=== PATIENT | male | born 1985 | race Caucasian/White ===

== ENCOUNTER 2018-01-19 18:13 | Emergency (ER) | END 2018-01-19 18:51 | disposition home or self-care (01) ==

== ENCOUNTER 2018-07-29 17:58 | Emergency (ER) | END 2018-07-29 19:48 | disposition home or self-care (01) ==

== ENCOUNTER 2018-09-07 00:35 | Emergency (ER) | payer SELFPAY ==
[~2018-09-07] VITALS: Ht 172.7 cm; Wt 62.8 kg
[~2018-09-07 00:35] MED LIST: ACET500C5 PO; AZIT250T PO; CETI10CA PO; CLIN300C10 PO; DOXY100T20 PO; IBUP-1542 PO
[2018-09-07 00:38] VITALS: BP 125/70; PULSE 88; RESP 19; Ht 172.7 cm; Wt 62.8 kg
--- NOTE | 2018-09-07 01:45 | ERD ---
ER Documentation Chief Complaint Chief Complaint SOB [id number] HPI This is a 33-year-old male who presents to emergency department with complaints of shortness of breath for about 30 minutes. Stated this happened about 2 hours prior to arrival here in emergency department. Stated he was here last July for the same symptoms and was told that it was normal. She also stated that they did chest x-ray and EKG and was normal. Denies headache, head injury, loss of consciousness, dizziness, neck pain, neck stiffness, throat pain, difficulty swallowing, difficulty breathing lying flat, shoulder pain, back pain, abdominal pain, nausea, vomiting, constipation, diarrhea, urinary symptoms, loss of bowel and bladder control, trauma, injury, falls, difficulty walking due to pain, numbness or tingling sensation, calf pain, recent travel, recent major surgery in the last 3 weeks, calf pain, recent long travel, recent exposure to any illness, recent antibiotic use in the last 3 months, fever, chills, seizures. Past medical history: Denies. Denies family history of heart attack before the age of 50. Smokes marijuana regularly. Occasionally drinks alcoholic beverages. Denies smoking cigarettes. Surgical history: Denies. Social: Denies smoking, use of alcoholic beverages, use of illegal drugs. ROS All systems reviewed and are negative except as per history of present illness. Medications Home Meds Active Scripts Hydroxyzine Hcl* (Hydroxyzine Hcl*) 50 Mg Tablet, 50 MG PO Q6H PRN for ANXIETY, #30 TAB Prov:GAROZACK Diez 09/07/18 Doxycycline Hyclate* (Doxycycline Hyclate*) 100 Mg Tablet.dr, 100 MG PO BID for 10 Days, TAB Prov:JANETTE CORRIGAN PA-C 07/29/18 Clindamycin Hcl* (Clindamycin Hcl*) 300 Mg Capsule, 300 MG PO TID for 10 Days, CAP Prov:JANETTE CORRIGAN PA-C 07/29/18 Acetaminophen* (Tylophen*) 500 Mg Capsule, 1 CAP PO Q6H PRN for PAIN AND OR ELEVATED TEMP, #20 CAP Prov:GREYSON QUINTEROS SECTION HAND HELPER 04/27/18 Ibuprofen* (Motrin*) 600 Mg Tab, 600 MG PO Q6H PRN for PAIN AND OR ELEVATED TEMP, #30 TAB Prov:BALTA MANCINI SECTION HAND HELPER 01/19/18 Cetirizine Hcl* (Zyrtec*) 10 Mg Capsule, 10 MG PO DAILY, #30 TAB.CHEW Prov:BALTA MANCINIIvy SECTION HAND HELPER 01/19/18 Azithromycin* (Zithromax*) 250 Mg Tablet, 250 MG PO .ZPACK DIRECTED, #6 TAB TAKE 500 MG (2 TABS) THE FIRST DAY THEN 250 MG (1 TAB) DAYS 2-5 Prov:BALTA MANCINIIvy SECTION HAND HELPER 01/19/18 Allergies Allergies: Coded Allergies: Penicillins (Verified Allergy, Intermediate, 04/27/18) PMhx/Soc Medical and Surgical Hx: pt denies Medical Hx History of Surgery: Yes (APPY) Anesthesia Reaction: No Hx Neurological Disorder: No Hx Respiratory Disorders: No Hx Cardiac Disorders: No Hx Psychiatric Problems: No Hx Miscellaneous Medical Probl: No Hx Alcohol Use: Yes (social) Hx Substance Use: Yes (MARIJUANA) Hx Tobacco Use: Yes Smoking Status: Current every day smoker Physical Exam Vitals Vital Signs Date Temp Pulse Resp B/P (MAP) Pulse Ox O2 O2 Flow FiO2 Time Delivery Rate 09/07/18 98.9 88 19 125/70 100 00:38 (88) Physical Exam Const: No acute distress Head: Atraumatic Eyes: Normal Conjunctiva ENT: Normal External Ears, Nose and Mouth. Neck: Full range of motion. No meningismus. Resp: Clear to auscultation bilaterally Cardio: Regular rate and rhythm, no murmurs Abd: Soft, non tender, non distended. Normal bowel sounds Skin: No petechiae or rashes Back: No midline or flank tenderness Ext: No cyanosis, or edema Neur: Awake and alert Psych: Normal Mood and Affect Results 24 hrs Current Medications Medications Dose Sig/Eder Start Time Status Last (Trade) Ordered Route PRN Stop Time Admin Dose Reason Admin Aspirin 325 mg ONCE ONCE 09/07/18 DC 09/07/18 (Aspirin) PO 02:00 01:56 09/07/18 02:01 Lorazepam 1 mg ONCE ONCE 09/07/18 DC 09/07/18 (Ativan) PO 02:00 01:56 09/07/18 02:01 Procedures/MDM Diagnostic tests: EKG: Normal sinus rhythm with a ventricular rate of 69 bpm. No STEMI. Read by supervising physician. Treatment: Ativan p.o. aspirin p.o. Re-evaluation: Appears comfortable. Not in distress. Differential diagnosis I have low suspicion for acute myocardial infarction, PNA, pneumothorax, anaphylaxis, cardiac disease. Final diagnosis: Anxiety. Prescription: Hydroxyzine. Follow-up with PCP in the next 24-48 hours. Come back here in the emergency department for any new symptoms or any worsening symptoms. All questions and concerns were answered. Patient and family members verbalized understanding and agreed with plan of care. Hemodynamically stable on discharge. Departure Diagnosis: Primary Impression: Shortness of breath Additional Impression: Anxiety Condition: Stable Additional Instructions: Follow-up with PCP in the next 24-48 hours. Come back here in the emergency department for any new symptoms or any worsening symptoms. ZACK WYMAN Sep 07, 2018 01:45
[2018-09-07] MEDS ORDERED: LORAZEPAM 1 MG TAB PO ONE (02:00)
[2018-09-07] MEDS ORDERED: ASPIRIN 325 MG TAB PO ONE (02:00)
[2018-09-07] MEDS ORDERED: HYDR50TA15 PO (02:50)
== END 2018-09-07 03:06 | disposition home or self-care (01) ==
LOC: FTE 00:35
DX: R06.02 Shortness of breath (principal); F41.9 Anxiety disorder, unspecified; F17.210 Nicotine dependence, cigarettes, uncomplicated
CPT/HCPCS: 93005